=== PATIENT | female | born 2000 | race Caucasian/White ===

== ENCOUNTER 2021-07-25 23:13 | Emergency (ER) | payer SELFPAY ==
[~2021-07-25] VITALS: Ht 149.9 cm; Wt 69.0 kg
[2021-07-26] MEDS ORDERED: IBUPROFEN 400MG TABLET PO ONE (00:30)
[2021-07-26 00:48] LABS: CLARITY URINE CLEAR (CLEAR); COLOR URINE YELLOW (YELLOW); KETONES URINE TRACE (NEGATIVE); LEUKOCYTE ESTERASE URINE 2+ (NEGATIVE); NITRITE URINE NEGATIVE (NEGATIVE); OCCULT BLOOD URINE 1+ (NEGATIVE); PROTEIN URINE 1+ (NEGATIVE); SPECIFIC GRAVITY URINE 1.012 (1.005-1.030); UROBILINOGEN URINE 0.2 E.U./dL (0.2-1.0)
[2021-07-26] MEDS ORDERED: CEFTRIAXONE SODIUM 1 G/VIAL IM NR (01:30)
[2021-07-26] MEDS ORDERED: LIDOCAINE HCL 1% 20ML VIAL (Pyxis) INJ INFIL NR (01:30)
[2021-07-26] MEDS ORDERED: CEPH500C2 MT (01:34)
[2021-07-26 02:22] VITALS: BP 118/69
== END 2021-07-26 02:29 | disposition home or self-care (01) ==
LOC: ER 23:13
DX: N10 Acute pyelonephritis (principal)
CPT/HCPCS: 81003; 81025; 87077; 87086; 87186; 93005; 96372; 99284; J0696; J3490